=== PATIENT | male | born 1985 | race Caucasian/White ===

== ENCOUNTER 2019-02-26 15:50 | Emergency (ER) | payer BC ==
[~2019-02-26] VITALS: Ht 180.3 cm; Wt 122.5 kg
[2019-02-26 15:59] VITALS: BP_SYST 125
--- NOTE | 2019-02-26 16:03 | NUR ---
Patient to [facility] for evaluation. Side rails up. Report given to FREDDY Cook
--- NOTE | 2019-02-26 16:45 | NUR ---
Patient c/o of left hip pain 09/24 that radiates to flank region after falling 11 steps of stairs in his mother's townhouse. Patient stated that he had blurry vision upon time of incident, but is not experiencing that at this time. Patient also stated that he has generalized pain but feels it most in flank area. Patient's neuro status WNL. Patient able to follow commands and responds to questions appropriately. Mother @ bedside.
--- NOTE | 2019-02-26 16:50 | NUR ---
Dr. De Anda @ bedside for examination.
[2019-02-26] MEDS ORDERED: fentaNYL CITRATE/PF 100 MCG/2 ML AMP IM ONE (17:00)
[2019-02-26 18:07] LABS: BILIRUBIN,URINE NEGATIVE (NEGATIVE); BLOOD, URINE NEGATIVE (NEGATIVE); CLARITY/URINE CLEAR (CLEAR); COLOR,URINE YELLOW (YELLOW); GLUCOSE,URINE NEGATIVE (NEGATIVE); KETONES,URINE NEGATIVE (NEGATIVE); LEUKOCYTE ESTERASE ,URINE NEGATIVE (NEGATIVE); NITRITE, URINE NEGATIVE (NEGATIVE); PH,URINE 7.5 (5.0-8.0); PROTEIN URINE NEGATIVE (NEGATIVE); UROBILINOGEN,URINE 0.2 (0.2-1.0)
[2019-02-26 19:26] VITALS: BP_SYST 118
--- NOTE | 2019-02-26 19:26 | NUR ---
Patient given written and verbal discharge instructions and verbalizes understanding. ER MD discussed with patient the results and treatment provided. Patient in stable condition. ID arm band removed. Rx of MOTRIN AND TRAMADOL given. Patient educated on pain management and to follow up with PMD. Pain Scale 0/10 Opportunity for questions provided and answered. Medication side effect fact sheet provided.
== END 2019-02-26 19:26 | disposition home or self-care (01) ==
LOC: SED 15:50
DX: S39.011A Strain of muscle, fascia and tendon of abdomen, initial encounter (principal); S30.810A Abrasion of lower back and pelvis, initial encounter; W01.0XXA Fall on same level from slipping, tripping and stumbling without subsequent striking against object, initial encounter; Y93.89 Activity, other specified; Y92.89 Other specified places as the place of occurrence of the external cause; Y99.8 Other external cause status
CPT/HCPCS: 70450; 74176; 81003; 96372; 99284; J3010